=== PATIENT | female | born 1950 | race Two or more races ===

== ENCOUNTER → 2016-12-30 | Outpatient (CLI) | payer OTHER ==
--- NOTE | 2016-12-30 15:35 | RADRPT ---
PROCEDURE: XR Left Hip and pelvis. CLINICAL INDICATION: Left hip pain. Pelvic pain. TECHNIQUE: Two views. Frontal pelvis and lateral left hip. COMPARISON: No prior studies are available for comparison. FINDINGS: There is no fracture or dislocation. The soft tissues are normal. Articular surfaces are intact. There is no lytic or blastic lesion. There are degenerative changes of the lower lumbar spine. IMPRESSION: 1. Degenerative changes of the lower lumbar spine. 2. Otherwise unremarkable images of the left hip and pelvis. RPTAT: QQ .Will Mccall MD, MD Date Time Electronically viewed and signed by .Will Mccall MD, MD on 12/30/2016 15:35 .R/
--- NOTE | 2017-01-07 05:50 | HKNOTE ---
DATE OF SERVICE: 12/31/2016 Radha Reyes [address] [place] [address] Reyes: Your patient, Juliette Bates, was seen in my office today complaining of pain in her left hip. Currently, the working diagnosis is trochanteric bursitis of the left hip, but she may have some degree of lumbar radiculopathy on the left side. She was given a cortisone injection and she will be seeing me again in a month's time for reevaluation. We may need to proceed with an MRI scan if my cortisone injection does not give her sufficient relief. Enclosed is a copy of my office notes for you records. Thank you for your confidence and continued care. With Warmest Regards, Dictated By: Salazar Knowles MD /[email or web address] /Document#: [id number]
== END | disposition home or self-care (01) ==
LOC: HKI 14:19
DX: M70.62 Trochanteric bursitis, left hip (principal); M51.36 Other intervertebral disc degeneration, lumbar region
CPT/HCPCS: 20610; 73502; Z7500; G0463